=== PATIENT | female | born 1995 | race Two or more races ===

== ENCOUNTER 2022-07-25 09:40 | Inpatient (IN) | payer OTHER ==
[2022-07-25] MEDS ORDERED: BENZOCAINE 28 GM HEMORRHOIDAL OINTMENT TP PRN (10:39)
[2022-07-25] MEDS ORDERED: METHYLERGONOVINE MALEATE 0.2 MG/1 ML AMP IM PRN (10:39)
[2022-07-25] MEDS ORDERED: BISACODYL 10 MG SUPP.RECT RC PRN (10:39)
[2022-07-25] MEDS ORDERED: WITCH HAZEL 50% (TUCKS) 40 PAD/JAR PAD TP PRN (10:39)
[2022-07-25] MEDS ORDERED: oxyCODONE HCL 5 MG TABLET PO PRN (10:39)
[2022-07-25] MEDS ORDERED: BENZOCAINE 20% 57 GM BOTTLE TP PRN (10:39)
[2022-07-25] MEDS ORDERED: DEXTROSE 5%-LACTATED RINGERS 1,000 ML IV SCH (10:45)
[2022-07-25] MEDS ORDERED: OXYTOCIN 20 UNITS in 0.9% NS 20 UNIT/1,000 ML INFUS.BAG IV SCH (10:45)
[2022-07-25] MEDS ORDERED: ACETAMINOPHEN 325 MG TABLET (FP) ONE (10:57)
[2022-07-25] MEDS: ACETAMINOPHEN 325 MG TABLET (FP) PO PRN (11:10)
[2022-07-25 11:22] VITALS: BMI 21.7
[2022-07-25 11:38] LABS: BLOOD UREA NITROGEN 7.3 mg/dL (7-18)
[2022-07-25 11:42] LABS: CREATININE 0.5 mg/dL (0.55-1.3)
[2022-07-25 12:16] LABS: HEMATOCRIT 39.3 % (32.4-45.2); HEMOGLOBIN 12.9 GM/dL (10.7-15.3); MCH 29.8 pg (25.7-33.7); MCHC 32.9 g/dl (32.0-36.0); MEAN CELL VOLUME 90.5 fl (80-96); PLATELET COUNT 272 10^3/uL (134-434); RBC 4.34 M/mm3 (3.60-5.2); RDW 13.3 % (11.6-15.6); WHITE BLOOD COUNT 21.1 K/mm3 (4.0-10.0)
[2022-07-25 12:27] LABS: INR 0.93 (0.83-1.09); PROTHROMBIN TIME (PATIENT) 10.8 SEC (9.7-13.0)
[2022-07-25 12:30] LABS: ACTIVATED PTT 24.6 SECONDS (25.2-36.5)
[2022-07-25 13:04] LABS: HIV INTERPRETATION NEGATIVE (NEGATIVE)
[2022-07-25] MEDS: FERROUS SO4 325 MG TABLET (FP) PO SCH ×2 (13:11→17:52)
[2022-07-25 13:17] LABS: ANISOCYTOSIS 1+; MACROCYTOSIS 0
[2022-07-25] MEDS ORDERED: ONDANSETRON 4 MG/2 ML VIAL IVPUSH PRN (14:58)
[2022-07-25] MEDS: IBUPROFEN 600 MG TABLET (FP) PO PRN (17:58)
[2022-07-26 07:35] LABS: BASO % 0.4 % (0-2.0); EOS % 0.9 % (0-4.5); HEMATOCRIT 38.1 % (32.4-45.2); HEMOGLOBIN 12.3 GM/dL (10.7-15.3); LYMPH % 20.8 % (8-40); MCH 29.1 pg (25.7-33.7); MCHC 32.3 g/dl (32.0-36.0); MEAN PLT VOLUME 8.7 fl (7.5-11.1); MONO % 5.4 % (3.8-10.2); NEUT % 72.5 % (42.8-82.8); PLATELET COUNT 277 10^3/uL (134-434); RBC 4.24 M/mm3 (3.60-5.2); RDW 13.3 % (11.6-15.6); WHITE BLOOD COUNT 17.5 K/mm3 (4.0-10.0)
[2022-07-26] MEDS: FERROUS SO4 325 MG TABLET (FP) PO SCH ×3 (09:45→18:15)
[2022-07-26] MEDS: PRENATAL VITAMINS W/ FOLIC ACID TABLET (FP) PO SCH (09:45)
[2022-07-26] MEDS: IBUPROFEN 600 MG TABLET (FP) PO PRN ×2 (09:45→16:40)
[2022-07-26] MEDS ORDERED: SENNOSIDES/DOCUSATE COMBO (SENNA PLUS) TABLET (UD) PO PRN (22:00)
[2022-07-27] MEDS: IBUPROFEN 600 MG TABLET (FP) PO PRN ×2 (05:40→15:04)
[2022-07-27] MEDS: PRENATAL VITAMINS W/ FOLIC ACID TABLET (FP) PO SCH (09:03)
[2022-07-27] MEDS: FERROUS SO4 325 MG TABLET (FP) PO SCH ×2 (09:03→15:04)
[2022-07-27] MEDS: ACETAMINOPHEN 325 MG TABLET (FP) PO PRN (09:03)
[2022-07-27 09:07] VITALS: BP 127/75; PULSE 76; RESP 18; TEMP 98.3
== END 2022-07-27 18:15 | disposition home or self-care (01) | DRG 807 ==
LOC: JLDR 09:40 → J3W 12:35
PROVIDERS: ADMIT Obstetrics & Gynecology; ATTEND Obstetrics & Gynecology
PROC: 10E0XZZ Delivery of Products of Conception, External Approach (ICD-10-PCS; principal; 2022-07-25)
DX: O62.3 Precipitate labor (principal); Z37.0 Single live birth; Z3A.38 38 weeks gestation of pregnancy
CPT/HCPCS: 36415; 80048; 85025; 85610; 85730; 86780; 86850; 86900; 86901; 87389